=== PATIENT | male | born 1995 | race Caucasian/White ===

== ENCOUNTER 2019-04-28 06:44 | Day surgery (SDC) | payer OTHER ==
[~2019-04-28] VITALS: Ht 177.8 cm; Wt 72.7 kg
[2019-04-28] MEDS ORDERED: NS 1,000 ML IV ONE (07:00)
[2019-04-28 07:23] LABS: BASO % 0.2 % (0.0-1.0); HEMATOCRIT 44.6 % (42.0-52.0); HEMOGLOBIN 15.7 g/dl (13.5-17.5); LYMPH # 0.8 10^3/uL (1.5-6.5); LYMPH % 6.4 % (24.0-44.0); MEAN CORPUSCULAR HEMOGLOBIN 31.5 pg (27.0-33.0); MEAN CORPUSCULAR HGB CONC 35.2 g/dl (32.0-36.5); MEAN CORPUSCULAR VOLUME 89.6 fl (80.0-96.0); MONO # 0.9 10^3/uL (0.0-0.8); MONO % 6.9 % (0.0-5.0); NEUTROPHILS # 11.3 10^3/uL (1.8-7.7); NEUTROPHILS % 86.2 % (36.0-66.0); PLATELET COUNT, AUTOMATED 241 10^3/uL (150-450); RED BLOOD COUNT 4.98 10^6/uL (4.30-6.10); WHITE BLOOD COUNT 13.1 10^3/uL (4.0-10.0)
[2019-04-28 07:48] LABS: ALBUMIN 4.3 GM/DL (3.2-5.2); ALT/SGPT 25 U/L (12-78); BILIRUBIN,DIRECT 0.2 MG/DL (0.0-0.2); BILIRUBIN,TOTAL 0.5 MG/DL (0.2-1.0); BLOOD UREA NITROGEN 9 MG/DL (7-18); CALCIUM LEVEL 9.9 MG/DL (8.5-10.1); CARBON DIOXIDE LEVEL 30 MEQ/L (21-32); CHLORIDE LEVEL 105 MEQ/L (98-107); CREATININE FOR GFR 1.08 MG/DL (0.70-1.30); GLOMERULAR FILTRATION RATE > 60.0 (>60); GLUCOSE, FASTING 117 MG/DL (70-100); LIPASE 92 U/L (73-393); POTASSIUM SERUM 4.1 MEQ/L (3.5-5.1); SODIUM LEVEL 141 MEQ/L (136-145); TOTAL PROTEIN 7.7 GM/DL (6.4-8.2)
[2019-04-28] MEDS ORDERED: ISOVUE-370 76% 100ML VIAL (Q9967) As Ordered ONE (08:09)
--- NOTE | 2019-04-28 08:50 | REP ---
CT of the abdomen and pelvis with IV contrast, without bowel contrast for right lower quadrant pain: There are no comparisons. There is diffuse appendix wall thickening and appendix wall enhancement. The appendix measures up to 17 cm transverse diameter. Findings are compatible with appendicitis. There is no periappendiceal phlegmon or abscess. The terminal ileum is unremarkable. The visualized lung edwards are unremarkable. The hepatic parenchyma, gallbladder, pancreas, adrenals, kidneys, abdominal aorta, bowel and mesentery are unremarkable. Abdominal aorta is unremarkable. Pelvis: Findings compatible with appendicitis as described. There is no ascites or adenopathy. The bladder is unremarkable. The pelvic bowel loops are otherwise unremarkable. Impression: Acute appendicitis as described. There is no evidence of kellee appendiceal abscess or phlegmon. Electronically Signed by Dylan Carmichael MD 04/28/2019 08:41 A
--- NOTE | 2019-04-28 10:24 | HPEPDOC ---
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 He denies any sick contacts, associated diarrhea, fevers or chills. Symptoms persisted thus he went to the emergency room. ALLERGIES: Please see below. HOME MEDICATIONS: Please see below. PAST MEDICAL HISTORY: 1. Denies any chronic medical problems. PAST SURGICAL HISTORY: 1. None. PERSONAL/SOCIAL HISTORY: Denies smoking, alcohol use, or recreational drug use. REVIEW OF SYSTEMS: GENERAL: Denies chills, fatigue, fever, weight gain and weight loss. HEENT: Denies blurred vision and double vision. Denies ear symptoms. Denies hoarseness. NECK: Denies any neck pain. CARDIOVASCULAR: Denies chest pain and palpitations. MUSCULOSKELETAL: Denies arthralgias, back pain and thrombophlebitis. SKIN: Denies rash. NEUROLOGIC: Denies headache. PSYCHIATRIC: Denies anxiety and depression. ENDOCRINE: Denies thyroid disease. HEMATOLOGY/ONCOLOGY: Denies any bleeding or clotting disorder. HEART: Denies any chest pains, palpitations, paroxysmal dyspnea, orthopnea. PULMONARY: Denies chronic cough, dyspnea and wheezing. GASTROINTESTINAL: See HPI. GENITOURINARY: Denies dysuria, frequency, hematuria and nocturia. ENDOCRINE: Denies polydipsia, polyphagia, polyuria, heat or cold intolerance. INFECTIOUS: Denies any recent upper respiratory tract infection, UTI, need for use of antibiotics. NUTRITION: no appetite today. PHYSICAL EXAMINATION: VITAL SIGNS: Please see below. GENERAL APPEARANCE: Appears relatively comfortable, patient able to sit up from a supine position without much tonsil discomfort. HEENT: Normocephalic, atraumatic. [place] palpebral conjunctivae. Anicteric sclerae. Lips moist. CHEST: No chest wall abnormalities. Normal respiratory motion/effort. NECK: Supple. No thyromegaly. No lymphadenopathies. LUNGS: Lung sounds are clear to auscultation bilaterally. No wheezing appreciated. HEART: No chest wall abnormalities. Heart rate and rhythm are regular with no murmurs. ABDOMEN: Flat, muscular abdomen, no noticeable distention. Soft, nondistended. Tender on palpation over the right lower quadrant area going towards the suprapubic area slightly at the infraumbilical area without any guarding EXTREMITIES: Extremities have no deformities. No edema identified. NEUROLOGICAL: Awake, alert, oriented. ANCILLARIES: . LABORATORY DATA: Please see below. MICROBIOLOGY: Please see below. IMAGING: CT abdomen and pelvis with IV contrast IMPRESSION AND PLAN: Acute Appendicitis Patient symptoms, clinical exam, imaging consistent with acute appendicitis. He is otherwise healthy. He will proceed with laparoscopic appendectomy. I explained to him the details of the procedure, its risks and benefits as well as other treatments for appendicitis including nonoperative treatment. Standard of care remains operative treatment. He is currently receiving Unasyn 3 g IV and we'll continue this perioperatively. He will stay overnight for continued antibiotics and so long as he tolerates procedure, afebrile and his leukocytosis resolves most likely would be able to go home tomorrow morning.. Vital Signs Vital Signs Date Time Temp Pulse Resp B/P (MAP) Pulse Ox O2 Delivery O2 Flow Rate FiO2 04/28/19 07:15 04/28/19 06:45 98.2 97 14 99 Room Air Laboratory Data Labs 24H Laboratory Tests 2 04/28/19 07:05: Immature Granulocyte % (Auto) 0.3, White Blood Count 13.1H, Red Blood Count 4.98, Hemoglobin 15.7, Hematocrit 44.6, Mean Corpuscular Volume 89.6, Mean Corpuscular Hemoglobin 31.5, Mean Corpuscular Hemoglobin Concent 35.2, Red Cell Distribution Width 12.5, Platelet Count 241, Neutrophils (%) (Auto) 86.2H, Lymphocytes (%) (Auto) 6.4L, Monocytes (%) (Auto) 6.9H, Eosinophils (%) (Auto) 0.0, Basophils (%) (Auto) 0.2, Neutrophils # (Auto) 11.3H, Lymphocytes # (Auto) 0.8L, Monocytes # (Auto) 0.9H, Eosinophils # (Auto) 0.0, Basophils # (Auto) 0.0, Nucleated Red Blood Cells % (auto) 0.0, Urine Color YELLOW, Urine Appearance C LEAR, Urine pH 7.0, Urine Specific [place] 1.028, Urine Protein 1+H, Urine Glucose (UA) NEGATIVE, Urine Ketones TRACEH, Urine Blood NEGATIVE, Urine Nitrite NEGATIVE, Urine Bilirubin NEGATIVE, Urine Urobilinogen 0.2, Urine Leukocyte Esterase NEGATIVE, Urine WBC (Auto) 2, Urine RBC (Auto) 5H, Urine Hyaline Casts (Auto) 0, Urine Bacteria (Auto) NEGATIVE, Urine Squamous Epithelial Cells 0, Urine Mucus (Auto) SMALL, Urine Sperm (Auto) , Anion Gap 6L, Glomerular Filtration Rate > 60.0, Calcium Level 9.9, Aspartate Amino Transf (AST/SGOT) 19, Alanine Aminotransferase (ALT/SGPT) 25, Alkaline Phosphatase 93, Total Bilirubin 0.5, Direct Bilirubin 0.2, Total Protein 7.7, Albumin 4.3, Albumin/Globulin R atio 1.26, Lipase 92 CBC/BMP Laboratory Tests 04/28/19 07:05 Red Blood Count 4.98, Mean Corpuscular Volume 89.6, Mean Corpuscular Hemoglobin 31.5, Mean Corpuscular Hemoglobin Concent 35.2, Red Cell Distribution Width 12.5, Neutrophils (%) (Auto) 86.2 H, Lymphocytes (%) (Auto) 6.4 L, Monocytes (%) (Auto) 6.9 H, Eosinophils (%) (Auto) 0.0, Basophils (%) (Auto) 0.2, Neutrophils # (Auto) 11.3 H, Lymphocytes # (Auto) 0.8 L, Monocytes # (Auto) 0.9 H, Eosinophils # (Auto) 0.0, Basophils # (Auto) 0.0 Home Medications No Active Prescriptions or Reported Meds Allergies Coded Allergies: No Known Allergies (Unverified , 04/28/19) A-FIB/CHADSVASC A-FIB History Current/History of A-Fib/PAF?: No Current PO Anticoag Therapy: No KAITLIN JUNG MD Apr 28, 2019 10:24
[2019-04-28] MEDS ORDERED: AMPICILLIN SOD/SULBACTAM SOD 3 GM in D5W MINI-BAG PLUS 100 ML IV ONE (10:30)
[2019-04-28] MEDS ORDERED: BUPIVACAINE HCL 0.25% 30 ML VIAL As Ordered ONE ×2 (13:04→15:41)
[2019-04-28] MEDS ORDERED: LIDOCAINE 1% SDV INJ 30 ML VIAL As Ordered ONE (13:04)
[2019-04-28] MEDS ORDERED: PROPOFOL 200 MG/20 ML VIAL As Ordered ONE (15:42)
[2019-04-28] MEDS ORDERED: ROCURONIUM BROMIDE 50 MG/5 ML VIAL As Ordered ONE (15:42)
[2019-04-28] MEDS ORDERED: LIDOCAINE 2% INJ 100 MG/5 ML SDV (FOR ANES.) As Ordered ONE (15:42)
[2019-04-28] MEDS ORDERED: fentaNYL 250 MCG/5 ML INJECTION (J3010) As Ordered ONE (15:43)
[2019-04-28] MEDS ORDERED: MIDAZOLAM INJ 2 MG/2 ML VIAL (J2250) As Ordered ONE (15:43)
[2019-04-28] MEDS ORDERED: UNASYN 1.5 GM VIAL As Ordered ONE (16:20)
[2019-04-28] MEDS ORDERED: KETOROLAC 60 MG/2 ML VIAL (J1885) As Ordered ONE (16:38)
[2019-04-28] MEDS ORDERED: dexameTHASONE 4 MG/ML 1ML VIAL (J1100) As Ordered ONE (16:38)
[2019-04-28] MEDS ORDERED: ONDANSETRON 4MG/2ML VIAL (J2405) As Ordered ONE (16:38)
[2019-04-28] MEDS ORDERED: SUGAMMADEX SODIUM 500 MG/5 ML VIAL (BRIDION) As Ordered ONE (16:47)
[2019-04-28] MEDS ORDERED: ACETAMINOPHEN TAB 650MG DOSE (2X325MG) PO PRN (17:15)
[2019-04-28] MEDS ORDERED: ONDANSETRON 4MG/2ML VIAL (J2405) IV PRN ×2 (17:15→17:30)
[2019-04-28] MEDS ORDERED: PERCOCET 5MG/325MG TAB PO PRN ×3 (17:15→17:30)
[2019-04-28] MEDS ORDERED: LR 1,000 ML IV SCH (17:30)
[2019-04-28] MEDS ORDERED: fentaNYL 100 MCG/2 ML INJECTION (J3010) IV PRN (17:30)
[2019-04-28] MEDS: LR 1,000 ML IV SCH (17:50)
[2019-04-28 18:00] VITALS: BP 131/80
[2019-04-28] MEDS ORDERED: AMPICILLIN SOD/SULBACTAM SOD 3 GM in D5W MINI-BAG PLUS 100 ML IV SCH (18:00)
[2019-04-28] MEDS ORDERED: NORCO, ANEXSIA 5/325MG TABLET (HYDROcodone/ACETAMINOPHEN) PO PRN ×2 (18:00)
[2019-04-28 18:30] VITALS: BP 120/71
[2019-04-28 19:00] VITALS: BP 127/81
[2019-04-28 20:00] VITALS: BP 120/77
[2019-04-28 21:00] VITALS: BP 125/71
[2019-04-28] MEDS: SENOKOT S TAB PO SCH (21:45)
[2019-04-28] MEDS: AMPICILLIN SOD/SULBACTAM SOD 3 GM in D5W MINI-BAG PLUS 100 ML IV SCH (21:46)
[2019-04-28 22:00] VITALS: BP 120/56
[2019-04-29] VITALS: BP 114/56
[2019-04-29] MEDS: LR 1,000 ML IV SCH (03:09)
[2019-04-29] MEDS: AMPICILLIN SOD/SULBACTAM SOD 3 GM in D5W MINI-BAG PLUS 100 ML IV SCH ×2 (04:58→10:38)
[2019-04-29 05:00] VITALS: BP 122/60
[2019-04-29] MEDS: KETOROLAC 30 MG/ML VIAL (J1885) IV PRN ×2 (05:04→12:49)
[2019-04-29 06:31] LABS: HEMATOCRIT 38.4 % (42.0-52.0); LYMPH # 0.5 10^3/uL (1.5-6.5); LYMPH % 6.4 % (24.0-44.0); MEAN CORPUSCULAR HEMOGLOBIN 30.6 pg (27.0-33.0); MEAN CORPUSCULAR HGB CONC 34.4 g/dl (32.0-36.5); MEAN CORPUSCULAR VOLUME 88.9 fl (80.0-96.0); MONO # 0.6 10^3/uL (0.0-0.8); MONO % 6.6 % (0.0-5.0); NEUTROPHILS # 7.3 10^3/uL (1.8-7.7); NEUTROPHILS % 86.8 % (36.0-66.0); PLATELET COUNT, AUTOMATED 226 10^3/uL (150-450); RED BLOOD COUNT 4.32 10^6/uL (4.30-6.10); WHITE BLOOD COUNT 8.4 10^3/uL (4.0-10.0)
[2019-04-29 06:32] LABS: HEMOGLOBIN 13.2 g/dl (13.5-17.5)
[2019-04-29 06:52] LABS: BLOOD UREA NITROGEN 10 MG/DL (7-18); CALCIUM LEVEL 8.5 MG/DL (8.5-10.1); CARBON DIOXIDE LEVEL 28 MEQ/L (21-32); CHLORIDE LEVEL 107 MEQ/L (98-107); CREATININE FOR GFR 0.97 MG/DL (0.70-1.30); GLOMERULAR FILTRATION RATE > 60.0 (>60); GLUCOSE, FASTING 125 MG/DL (70-100); SODIUM LEVEL 139 MEQ/L (136-145)
[2019-04-29 08:00] VITALS: BP 109/56
--- NOTE | 2019-04-29 08:40 | ROOPDOC ---
[facility] Report Of Operation Report of Operation DATE OF PROCEDURE: 04/28/19 PREPROCEDURE DIAGNOSES: Acute appendicitis. POSTPROCEDURE DIAGNOSES: Acute appendicitis. PROCEDURE: Laparoscopic appendectomy. SURGEON: Varinder Dobbins MD ANESTHESIA: Gen. anesthesia. ESTIMATED BLOOD LOSS: Approximately 10 mL. COMPLICATIONS: None. PROCEDURE NOTE: Appendix is moderately thickened and distended throughout its course including that of the base. There is a hard appendicolith close to the base. It takes a slight retrocecal course but the cecum was loose lateral wall attachments. No purulent fluid or signs of abscess formation. No ischemia or necrosis or perforation of the appendix. DESCRIPTION OF PROCEDURE: Patient has been given a dose of Unasyn 3 g IV every 6 hours perioperatively while awaiting availability of the operating room. Patient was brought to the operating room, placed supine on the table. Sequential compression device placed for DVT prophylaxis. General endotracheal anesthesia started. The abdomen prepped and draped in usual sterile fashion. After a surgical timeout, we began our surgery Entry into the abdomen done through an incision just above the umbilicus. Veress needle inserted on a controlled fashion. Intra-abdominal placement confirmed with saline drop technique. CO2 insufflation started to a pressure of 15 mmHg. Using the same incision a 5 mm optical port was placed under direct vision of laparoscope. Insertion site was inspected for injury and none was f ound. He was placed on a Trendelenburg position the right side tilted to about 30 to allow for better visualization of the appendix. A 5 mm port was placed under direct vision at the suprapubic area. The umbilical port was exchanged for an 8 mm port. Another 5 mm port was placed over the left lower quadrant area. Operative findings: The appendix is quite thickened and distended throughout its course. Half of it courses in a retrocecal manner with fibrous attachments of the wall of the cecum which was sharply divided down to the base. Even the paced looks thickened and slightly before the base appears a hard appendicolith. There were no areas of ischemia, necrosis or perforation. Minimal amount of reactive clear fluid in the gallbladder, no purulent collection in the gutter, perihepatic or pelvic area that I could see. The appendix was located. The Surrounding bowels retracted away from the appendix. This was grasped to pull the base of the appendix into view. The mesoappendix was divided using Harmonic scalpel down to the base. The fibrous adhesion, attachments to the lateral wall of the cecum was likewise sharply divided as we followed the course of the retrocecal appendix down to its base. The base still appears distended and thickened. Palpating around the base could feel a hard and fecalith which I milked forward to free up the base of the appendix. The terminal ileum was slightly adhered to the pelvic sidewall which was likewise dissected to further bring the base of the appendix into view. Two PDS Endoloops were placed to ligate the appendix at its base then divided with a Harmonic Scalpel then the stump was cauterized. Stump appears healthy. Appendix was then delivered into an Endo Catch bag and retrieved through the umbilical port site. After re-insufflation the surgical site was inspected for hemostasis. Surrounding areas of the abdomen including the pelvis and perihepatic area were inspected for fluid collections or signs of injury. The abdomen was deflated. All ports removed. The umbilical fascial defect repaired with 0 Vicryl in a mattress fashion. All skin incisions closed with 4-0 Monocryl in a subcuticular fashion. Steri-Strips and gauze dressing used for wound coverage. Patient was promptly awake and extubated and brought to recovery room stable. All counts of sponges and instruments verified to be correct. VARINDER DOBBINS MD Apr 29, 2019 08:40
[2019-04-29] MEDS: SENOKOT S TAB PO SCH (08:49)
[2019-04-29 12:00] VITALS: BP 117/56
[2019-04-29] MEDS ORDERED: HYDR-4571 PO (12:17)
--- NOTE | 2019-04-29 12:19 | IPNPDOC ---
Subjective General Date/Time Seen The patient was seen on 04/29/19 at 12:18. Subject Chief Complaint/History The patient is a 24-year-old male admitted with a reason for visit of Appendicitis. Patient reports relatively comfortable. He is tolerating regular food. He denies any nausea or vomiting. He's been ambulating the hallways. Current Medications Current Medications Current Medications Acetaminophen (Tylenol Tab) 650 mg Q4HP PRN PO MILD PAIN or TEMP > 101; Start 04/28/19 at 17:15 Acetaminophen/ Hydrocodone Bitart ([place], Anexsia 5/325) 1 tab Q6HP PRN PO MILD/MODERATE PAIN (PS 1-7) Last administered on 04/29/19at 08:55; Start 04/28/19 at 18:00 Acetaminophen/ Hydrocodone Bitart ([place], Anexsia 5/325) 2 tab Q6HP PRN PO SEVERE PAIN (PS 8-10); Start 04/28/19 at 18:00 Ampicillin Sodium/ Sulbactam Sodium 3 gm/Dextrose 100 ml @ 200 mls/hr Q6H IV ; Start 04/28/19 at 18:00; Stop 04/28/19 at 18:25; Status DC Ampicillin Sodium/ Sulbactam Sodium 3 gm/Dextrose 100 ml @ 200 mls/hr Q6H IV Last administered on 04/29/19at 10:38; Start 04/28/19 at 22:00 Fentanyl Citrate (Sublimaze) 25 mcg Q5MP PRN IV MODERATE PAIN (PS 4-7); Start 04/28/19 at 17:30; Stop 04/28/19 at 18:30; Status DC Home Med (Med Rec Complete!) ASDIRECTED XX ; Start 04/28/19 at 10:30; Stop 04/28/19 at 10:33; Status DC Ketorolac Tromethamine (ToRADol) 30 mg Q6HP PRN IV MILD/MODERATE PAIN (PS 1-7) Last administered on 04/29/19at 05:04; Start 04/28/19 at 22:00; Stop 05/03/19 at 21:59 Lactated Ringer's 1,000 ml @ 100 mls/hr Q10H IV ; Start 04/28/19 at 17:09 Lactated Ringer's 1,000 ml @ 100 mls/hr Q10H IV ; Start 04/28/19 at 17:30; Stop 04/28/19 at 18:30; Status DC Ondansetron HCl (ZOFRAN INJection) 4 mg Q4HP PRN IV NAUSEA OR VOMITING; Start 04/28/19 at 17:30; Stop 04/28/19 at 18:30; Status DC Ondansetron HCl (ZOFRAN INJection) 4 mg Q6HP PRN IV NAUSEA OR VOMITING; Start 04/28/19 at 17:15 Oxycodone/ Acetaminophen (Percocet 5mg/ 325mg Tablet) 1 tab ASDIRECTED PRN PO MILD/MODERATE PAIN (PS 1-7); Start 04/28/19 at 17:30; Stop 04/28/19 at 18:30; Status DC Oxycodone/ Acetaminophen (Percocet 5mg/ 325mg Tablet) 1 tab Q4HP PRN PO MODERATE PAIN (PS 5-7); Start 04/28/19 at 17:15; Stop 04/28/19 at 17:44; Status DC Oxycodone/ Acetaminophen (Percocet 5mg/ 325mg Tablet) 2 tab Q6HP PRN PO SEVERE PAIN (PS 8-10); Start 04/28/19 at 17:15; Stop 04/28/19 at 17:44; Status DC Senna/Docusate Sodium (Senokot S) 1 tab BID PO Last administered on 04/29/19at 08:49; Start 04/28/19 at 21:00 Allergies Coded Allergies: No Known Allergies (Unverified , 04/28/19) Objective Physical Examination Examination GENERAL APPEARANCE:Patient seen, laying in bed, awake, alert, and oriented. Comfortable, in no acute distress. SKIN: Warm and moist. HEENT: Normocephalic, atraumatic. [place] palpebral conjunctiva, anicteric sclerae. Lips and mucosa appear moist. NECK: Supple, no thyromegaly. No obvious jugular venous distention. LUNGS: Clear to auscultation bilaterally. No wheezing appreciated. HEART: No chest wall abnormalities. Regular rate and rhythm with no murmurs appreciated. ABDOMEN: Abdomen is flat, soft, and nondistended. Laparoscopic port sites are clean, dry and intact. Mild residual tenderness on the right lower quadrant area and umbilical port site.. EXTREMITIES: Extremities have no deformities. No edema identified. Vital Signs Vital Signs Date Time Temp Pulse Resp B/P (MAP) Pulse Ox O2 Delivery O2 Flow Rate FiO2 04/29/19 09:30 16 04/29/19 08:00 98.8 66 109/56 (73) 98 04/28/19 14:57 Room Air I&Os I&O- Last 24 Hours up to 6 AM 04/29/19 06:00 Intake Total 2650 ml Output Total 310 ml Balance 2340 ml Laboratory Data Labs 24H Laboratory Tests 2 04/29/19 06:11: Immature Granulocyte % (Auto) 0.2, White Blood Count 8.4, Red Blood Count 4.32, Hemoglobin 13.2#L, Hematocrit 38.4L, Mean Corpuscular Volume 88.9, Mean Corpuscular Hemoglobin 30.6, Mean Corpuscular Hemoglobin Concent 34.4, Red Cell Distribution Width 12.3, Platelet Count 226, Neutrophils (%) (Auto) 86.8H, Lymphocytes (%) (Auto) 6.4L, Monocytes (%) (Auto) 6.6H, Eosinophils (%) (Auto) 0.0, Basophils (%) (Auto) 0.0, Neutrophils # (Auto) 7.3, Lymphocytes # (Auto) 0.5L, Monocytes # (Auto) 0.6, Eosinophils # (Auto) 0.0, Basophils # (Auto) 0.0, Nucleated Red Blood Cells % (auto) 0.0, Anion Gap 4L, Glomerular Filtration Rate > 60.0, Blood Urea Nitrogen 10, Creatinine 0.97, Sodium Level 139, Potassium Level 4.0, Chloride Level 107, Carbon Dioxide Level 28, Calcium Level 8.5 CBC/BMP Laboratory Tests 04/29/19 06:11 Red Blood Count 4.32, Mean Corpuscular Volume 88.9, Mean Corpuscular Hemoglobin 30.6, Mean Corpuscular Hemoglobin Concent 34.4, Red Cell Distribution Width 12.3, Neutrophils (%) (Auto) 86.8 H, Lymphocytes (%) (Auto) 6.4 L, Monocytes (%) (Auto) 6.6 H, Eosinophils (%) (Auto) 0.0, Basophils (%) (Auto) 0.0, Neutrophils # (Auto) 7.3, Lymphocytes # (Auto) 0.5 L, Monocytes # (Auto) 0.6, Eosinophils # (Auto) 0.0, Basophils # (Auto) 0.0, Calcium Level 8.5 Impression Acute Appendicitis POD1 Lap appendectomy OK to go home, no antibiotics require sent prescription for [place] prn follow up in 2 weeks Plan / VTE VTE Prophylaxis Ordered?: No VTE Exclusion Mechanical Proph: Low Risk for VTE KAITLIN JUNG MD Apr 29, 2019 12:19
== END 2019-04-29 13:00 | disposition home or self-care (01) ==
LOC: M ED 06:44 → M SDC 06:45 → M PED 17:50 → M SDC 04-29 13:00
PROVIDERS: ATTEND Surgery
DX: K35.80 Unspecified acute appendicitis (principal)
CPT/HCPCS: 36415; 44970; 74177; 80048; 80076; 81001; 83690; 85025; 88302; 96365; 96375; 96376; 99284; J1100; J1885; J2250; J2405; J3010; Q9967